=== PATIENT | male | born 1990 | race Hispanic/Latino ===

== ENCOUNTER 2021-07-16 06:58 | Day surgery (SDC) | payer OTHER ==
[2021-07-15 12:43] LABS: BASOPHILS % (AUTO) 0.8 % (0.0-5.0); EOSINOPHILS % (AUTO) 0.9 % (0.0-8.0); HEMATOCRIT 48.8 % (42-54); LYMPHOCYTES % (AUTO) 35.2 % (21.0-51.0); MEAN CORPUSCULAR HEMOGLOBIN 30.5 pg (27.0-33.0); MEAN CORPUSCULAR HGB CONC 33.6 g/dL (32.0-36.0); MEAN CORPUSCULAR VOLUME 90.7 fL (79-99); MONOCYTES % (AUTO) 7.6 % (3.0-13.0); NEUTROPHILS % (AUTO) 55.3 % (40.0-77.0); PLATELET COUNT (AUTO) 238 K/uL (130-400); RED BLOOD CELL COUNT(AUTO) 5.38 MIL/uL (4.50-6.20); WHITE BLOOD COUNT (AUTO) 6.4 K/uL (4.8-10.8)
[2021-07-15 12:49] LABS: CREATININE 1.2 mg/dL (0.5-1.5); POTASSIUM 4.5 mmol/L (3.5-5.1)
[2021-07-15 14:10] VITALS: BP 140/75
[2021-07-16] VITALS (17 sets, daily range): BP systolic 122–134; BP diastolic 66–84
[~2021-07-16] VITALS: Ht 182.9 cm; Wt 99.9 kg
[~2021-07-16 06:58] MED LIST: ASPI-1032 PO
[2021-07-16] MEDS ORDERED: CLINDAMYCIN IVPB 600MG/50ML 50 ML IV ONE (07:30)
[2021-07-16] MEDS ORDERED: LACTATED RINGERS 1000ML 1,000 ML IV SCH (08:00)
[2021-07-16] MEDS ORDERED: CEFAZOLIN SODIUM 1 GM VIAL IVP ONE (08:00)
[2021-07-16] MEDS ORDERED: CEFAZOLIN SODIUM 1 GM VIAL ONE (08:41)
[2021-07-16] MEDS ORDERED: CLINDAMYCIN 900MG/6ML INJ ONE (09:12)
[2021-07-16] MEDS ORDERED: PROPOFOL 10 MG/ML 20ML VIAL IV ONE (09:59)
[2021-07-16] MEDS ORDERED: DEXAMETHASONE SOD PHOSPHATE 10MG/ML 1ML VIAL ONE (09:59)
[2021-07-16] MEDS ORDERED: ONDANSETRON 4MG INJ ONE ×2 (09:59→13:16)
[2021-07-16] MEDS ORDERED: LIDOCAINE PF 100MG/5ML (2%) SYRINGE 5ML ONE (09:59)
[2021-07-16] MEDS ORDERED: SUCCINYLCHOLINE CHLORIDE 20 MG/ML 10 ML VIAL ONE (09:59)
[2021-07-16] MEDS ORDERED: GLYCOPYRROLATE 1 MG/5 ML SYRINGE ONE (10:00)
[2021-07-16] MEDS ORDERED: FENTANYL CITRATE PF 50 MCG/1 ML 2ML VIAL ONE (10:00)
[2021-07-16] MEDS ORDERED: MIDAZOLAM HCL 1 MG/ML 2ML VIAL ONE (10:00)
[2021-07-16] MEDS ORDERED: NEOSTIGMINE 5MG/5ML SYR IV ONE (10:00)
[2021-07-16] MEDS ORDERED: ROCURONIUM 10MG/1ML SYR 10 MG/ML ML ONE (10:00)
[2021-07-16] MEDS ORDERED: ROPIVACAINE 0.5% 5MG/ML 30ML IJ ONE (10:16)
[2021-07-16] MEDS ORDERED: TRANEXAMIC ACID 1000MG/10ML ONE (11:28)
[2021-07-16] MEDS ORDERED: MEPERIDINE-PF 25 MG/ML SYG ONE ×3 (11:42→13:13)
[2021-07-16] MEDS ORDERED: PHENYLEPHRINE HCL 10 MG/ML 1ML VIAL IV ONE (12:21)
[2021-07-16] MEDS ORDERED: METOCLOPRAMIDE 10 MG/2 ML VIAL ONE (13:20)
[2021-07-16] MEDS ORDERED: HYDROCODONE/ACETAMINOPHEN 10/325 MG TAB PO PRN (14:30)
== END 2021-07-16 15:05 | disposition home or self-care (01) ==
LOC: DAH 06:58
PROVIDERS: ATTEND Orthopaedic Surgery
DX: M23.611 Other spontaneous disruption of anterior cruciate ligament of right knee (principal); Z20.822 Contact with and (suspected) exposure to COVID-19; M23.321 Other meniscus derangements, posterior horn of medial meniscus, right knee; M94.261 Chondromalacia, right knee; M25.361 Other instability, right knee; Z88.0 Allergy status to penicillin; Z79.899 Other long term (current) drug therapy; Z98.890 Other specified postprocedural states
CPT/HCPCS: 29882; 29888; 36415; 80048; 85025; 87635; A4215; A4221; A4222; A4223; A4649 ×5; A4663; A5120; A6223; A6260; C1713 ×2; C1762; C9803; J0330; J1100; J2001; J2175 ×3; J2250; J2370; J2405 ×2; J2704; J2710; J2765; J2795; J3010; J3490 ×3; J7120 ×2; J0690